=== PATIENT | male | born 1955 | race Caucasian/White ===

== ENCOUNTER 2021-02-03 21:30 | Observation (INO) | payer OTHER ==
[2021-02-03] MEDS ORDERED: diphenhydrAMINE 50 MG/ML VIAL ONE (21:35)
[2021-02-03] MEDS ORDERED: methylPREDNISolone Sod Succ/PF 125 MG/2 ML VIAL ONE ×2 (21:35→21:37)
[2021-02-03] MEDS ORDERED: Famotidine/PF 20 mg/2ml Vial ONE ×2 (21:36→21:37)
[2021-02-03] MEDS ORDERED: EPINEPHrine 1 MG/ML AMP ONE (22:12)
[2021-02-03] MEDS ORDERED: Ondansetron PF 4 MG/2 ML Vial IVP PRN (23:48)
[2021-02-03] MEDS ORDERED: Acetaminophen 325 MG TAB PO PRN (23:48)
[2021-02-03] MEDS ORDERED: Colchicine 0.6 MG TAB PO PRN (23:53)
[2021-02-03 23:56] LABS: #Eosinphils 0.1 10x3/uL (0.0-0.5); #Monocytes 0.5 10x3/uL (0.0-1.1); #Neutrophils 10.7 10x3/uL (1.5-8.4); %Basophils 0.3 % (0.0-2.0); %Eosinophils 0.4 % (0.0-6.0); %Lymphocytes 11.6 % (18.0-47.0); %Monocytes 3.9 % (0.0-10.0); %Neutrophils 81.6 % (40.0-75.0); Hemoglobin 13.9 g/dL (13.5-17.5); Mean Corpuscular HGB CONC 33.7 g/dL (32.0-36.0); Mean Corpuscular Hemoglobin 33.5 pg (27.0-33.0); Mean Corpuscular Volume 99.3 fl (81.2-95.1); Mean Platelet Volume 9.5 fl (7.4-10.4); Platelet Count 203 10x3/uL (150-450); Red Blood Cell (RBC) Count 4.15 10x6/uL (4.32-5.72); White Blood Cell (WBC) Count 13.1 10x3/uL (3.5-10.5)
[2021-02-04 00:06] LABS: ALT (SGPT) 42 U/L (8-55); AST (SGOT) 30 U/L (5-34); Albumin 3.8 g/dL (3.4-4.8); Alkaline Phosphatase 58 U/L (40-110); Anion Gap 11 mmol/L (10-20); BUN (Urea Nitrogen) 15 mg/dL (8.4-25.7); Bilirubin, Total 0.2 mg/dL (0.2-1.2); Calc. Creatinine Clearance 0 mL/min (70-130); Calcium 8.8 mg/dL (7.8-10.44); Carbon Dioxide 20 mmol/L (23-31); Chloride 106 mmol/L (98-107); Globulin 2.5 g/dL (2.4-3.5); Glucose 267 mg/dL (80-115); Potassium 3.2 mmol/L (3.5-5.1); Protein, Total 6.3 g/dL (5.8-8.1); Sodium 134 mmol/L (136-145)
[2021-02-04 00:07] LABS: Magnesium 1.9 mg/dL (1.6-2.6)
[2021-02-04 01:22] VITALS: BMI 31.7
[2021-02-04] MEDS: diphenhydrAMINE 50 MG/ML VIAL IVP SCH ×2 (01:49→08:06)
[2021-02-04] MEDS ORDERED: Sodium Chloride 0.9% 1,000 ML IV SCH (02:00)
[2021-02-04] MEDS ORDERED: Potassium Chloride 20 MEQ TAB PO SCH (02:00)
[2021-02-04 02:55] LABS: SARS-CoV-2 NAA Rapid Test Not Detected (NotDetected)
[2021-02-04] MEDS: methylPREDNISolone Sod Succ 40 MG VIAL IVP SCH ×2 (03:48→11:52)
[2021-02-04] MEDS ORDERED: methylPREDNISolone Sod Succ/PF 125 MG/2 ML VIAL IVP SCH (04:00)
[2021-02-04] MEDS ORDERED: Levothyroxine Sodium 88 MCG TAB PO SCH (06:00)
[2021-02-04] MEDS: Fenofibrate Nanocrystallized 145 MG TAB PO SCH (08:06)
[2021-02-04 08:56] LABS: Anion Gap 12 mmol/L (10-20); BUN (Urea Nitrogen) 14 mg/dL (8.4-25.7); Calc. Creatinine Clearance 82 mL/min (70-130); Calcium 9.3 mg/dL (7.8-10.44); Carbon Dioxide 22 mmol/L (23-31); Chloride 110 mmol/L (98-107); Glucose 167 mg/dL (80-115); Potassium 4.6 mmol/L (3.5-5.1); Sodium 139 mmol/L (136-145)
[2021-02-04] MEDS ORDERED: Allopurinol 100 MG TAB PO SCH (09:00)
[2021-02-04] MEDS ORDERED: Famotidine/PF 20 mg/2ml Vial SLOW IVP SCH (09:00)
[2021-02-04] MEDS ORDERED: DULoxetine 30 MG CAP PO SCH (09:00)
[2021-02-04 14:36] VITALS: BP 135/74; TEMP 98.5
[2021-02-04 17:08] LABS: Hemoglobin A1c 5.6 % (4.0-6.0)
[2021-02-04] MEDS ORDERED: Atorvastatin Calcium 20 MG TAB PO SCH (21:00)
== END 2021-02-04 15:40 | disposition home or self-care (01) ==
LOC: CSHERS 21:30 → CSHTELE 23:48 → UNDOADMOB 02-04 01:18 → UNDODISOB 02-04 15:40
PROVIDERS: ADMIT Student in an Organized Health Care Education/Training Program; ATTEND Family Medicine
DX: T78.02XA Anaphylactic reaction due to shellfish (crustaceans), initial encounter (principal); Z87.892 Personal history of anaphylaxis; E03.9 Hypothyroidism, unspecified; E78.5 Hyperlipidemia, unspecified; E78.1 Pure hyperglyceridemia; F32.A Depression, unspecified; F17.210 Nicotine dependence, cigarettes, uncomplicated; F12.10 Cannabis abuse, uncomplicated; G47.33 Obstructive sleep apnea (adult) (pediatric); M10.9 Gout, unspecified; Z20.822 Contact with and (suspected) exposure to COVID-19; Z79.899 Other long term (current) drug therapy; Z88.8 Allergy status to other drugs, medicaments and biological substances; Z88.2 Allergy status to sulfonamides; Z91.018 Allergy to other foods
CPT/HCPCS: 36415; 80048; 80053; 83036; 83735; 85025; 93005; 94760; 96372; 96374; 96375; 96376; G0378; J0171; J1200; J2920; J2930; J7050; S0028; U0002